=== PATIENT | female | born 1965 | race Caucasian/White ===

== ENCOUNTER 2016-11-25 07:30 | Inpatient (IN) | payer OTHER ==
--- NOTE | 2016-11-17 21:08 | HP ---
HISTORY AND PHYSICAL: DATE OF ADMISSION/SURGERY: 11/25/16 PROCEDURE: Left total knee arthroplasty. CHIEF COMPLAINT: Left knee pain. HISTORY OF PRESENT ILLNESS: Ms. Lebron is a 51-year-old female with complaints of left knee pain secondary to advanced osteoarthritis. She has failed conservative management and has elected to proceed with a left total knee arthroplasty which is scheduled for 11/25/[address] Foster. PAST MEDICAL HISTORY: 1. COPD. 2. High cholesterol. 3. Type 2 diabetes. 4. Seizure disorder. 5. Anxiety. 6. TIA. 7. Neuropathy. 8. Sleep apnea. PAST SURGICAL HISTORY: 1. Tubal ligation. 2. Left knee arthroscopy. 3. Lumbar diskectomy and ACDF. CURRENT MEDICATIONS: 1. Diclofenac. 2. Lovastatin. 3. Metformin. 4. Gabapentin. 5. Spiriva. 6. Propranolol. 7. Albuterol. 8. Lamotrigine. 9. Bupropion. ALLERGIES: WELLBUTRIN and CORTICOSTEROIDS. FAMILY HISTORY: Diabetes, high blood pressure, and heart disease. SOCIAL HISTORY: She is a 51-year-old female. She is a . She lives with her daughter. She smokes a pack a day for the last 40 years. She denies use of drugs. Uses occasional alcohol. REVIEW OF SYSTEMS: A complete 14-point review of systems was reviewed with the patient and was positive for bilateral lower extremity edema, seizure disorder. Her last seizure was about a month ago. She denies history of a DVT, PE, hepatitis C, HIV, or MRSA. PHYSICAL EXAMINATION GENERAL: She is well developed, well nourished in no acute distress. VITAL SIGNS: She stands 5 feet 3 inches tall, weighs 199 pounds. Her blood pressure is 119/82. Heart rate 60. HEENT: Normocephalic, atraumatic. NECK: Supple. No palpable lymph nodes. Trachea is midline. PULMONARY: She has mild expiratory wheezes in the right upper and lower lung bases. CARDIO: Regular rate and rhythm. Strong S1, S2. No murmurs, gallops, or rubs. No peripheral edema. ABDOMEN: Soft, nontender, nondistended. NEUROLOGICAL: She is alert and oriented x3. Cranial nerves II through XII are intact. MUSCULOSKELETAL: Left lower extremity: The skin is intact. She has a moderate joint effusion. Tenderness over the medial and lateral joint line. Full range of motion of the left knee, 2+ dorsalis pedis pulses, intact sensation, and her lower extremity muscle group strengths are intact at 5/5. ASSESSMENT AND PLAN: Ms. Lebron is a 51-year-old female with complaints of left knee pain secondary to advanced osteoarthritis. She has failed conservative management and has elected to proceed with a left total knee arthroplasty, which is scheduled for 11/25/[address] Foster discussed the risks and benefits of the surgery at today's visit and all of her questions were answered. Coumadin, Colace, and Percocet were sent to her pharmacy at today's visit for postoperative pain control and DVT prophylaxis. She will see Dr. Foster back 10 to 14 days after the surgery. KANA HOOK [id number]/[facility] #: [id number] MTDMarcy
[~2016-11-25 07:30] MED LIST: Buffered Lidocaine 1% SYRIN* 3 ML/SYR SYRINGE INTRADERM ONE; DiMENhydriNATE IV* 50 MG/ML VIAL IV PUSH PRN; Famotidine IV* 10 MG/ML 2 ML (20 mg) IV ONE; HYDROmorphone* 1 MG/ML 1 ML SYR ONE; Midazolam* 1 MG/ML 5 ML VIAL (5 MG) ONE; Morphine PF AMP (0.5MG/ML)* 5 MG/10 ML AMP ONE; Ondansetron INJ* 2 MG/ML VIAL IV PRN; PROCHLORPERAZINE INJ 5 MG/ML 2 ML VIAL IV PRN; fentaNYL* 50 MCG/ML 2 ML VIAL (100 MCG VIAL) IV PRN; fentaNYL* 50 MCG/ML 2 ML VIAL (100 MCG VIAL) ONE
[2016-11-25] MEDS ORDERED: ceFAZolin 2 GM PREMIX(*) 2 GM/50 ML BAG IVPB ONE (07:53)
[2016-11-25] MEDS ORDERED: Famotidine IV* 10 MG/ML 2 ML (20 mg) ONE (07:53)
[2016-11-25] MEDS ORDERED: fentaNYL* 50 MCG/ML 2 ML VIAL (100 MCG VIAL) ONE (09:23)
[2016-11-25] MEDS ORDERED: Propofol* 10 MG/ML 20 ML BTL IV PUSH ONE (09:23)
[2016-11-25] MEDS ORDERED: Bupivacaine 0.5% SDV PF* 30 ML VIAL ONE (09:23)
[2016-11-25] MEDS ORDERED: Dexmedetomidine* 200 MCG/2 ML 2 ML VIAL ONE (09:23)
[2016-11-25] MEDS ORDERED: HYDROmorphone* 1 MG/ML 1 ML SYR ONE (11:41)
[2016-11-25] MEDS ORDERED: diPHENhydraMINE IV* 50 MG/ML 1 ml VIAL (BENADRYL) IV PRN ×2 (12:45→13:16)
[2016-11-25] MEDS ORDERED: oxyCODONE/Acetamin 5/325 MG* TAB PO PRN (12:45)
[2016-11-25] MEDS ORDERED: LACTULOSE* 30 ML UDC PO PRN (12:45)
[2016-11-25] MEDS ORDERED: Magnesium Hydroxide LIQ* 30 ML UDC PO PRN (12:45)
[2016-11-25] MEDS ORDERED: Acetaminophen TAB* 325 MG PO PRN (12:45)
[2016-11-25] MEDS ORDERED: Ondansetron INJ* 2 MG/ML VIAL IV PRN ×2 (12:45→13:16)
[2016-11-25] MEDS ORDERED: Ondansetron TAB* 4 MG PO PRN (12:45)
[2016-11-25] MEDS ORDERED: Bisacodyl SUPP* 10 MG SUPP PR PRN (12:45)
[2016-11-25] MEDS ORDERED: Polyethylene Glycol 3350* 17 GM PACKET PO PRN (12:45)
[2016-11-25] MEDS ORDERED: Nalbuphine* 20 MG/ML 1 ML VIAL IV PRN (13:16)
[2016-11-25] MEDS ORDERED: Naloxone* 0.4 MG/ML 1 ML VIAL IV PRN (13:16)
[2016-11-25] MEDS ORDERED: DiMENhydriNATE IV* 50 MG/ML VIAL IV PUSH PRN (13:16)
[2016-11-25] MEDS ORDERED: Gabapentin TAB(NF) 600 MG PO SCH (14:00)
[2016-11-25] MEDS ORDERED: PROCHLORPERAZINE INJ 5 MG/ML 2 ML VIAL IV PRN (15:30)
[2016-11-25] MEDS ORDERED: Dextrose 50% Syringe 50 ML* 25 GM/50 ML SYRINGE IV PUSH PRN (15:54)
[2016-11-25] MEDS ORDERED: Mouth Piece, Nicotine* 1 EACH CARTRIDGE ONE (16:09)
[2016-11-25] MEDS: Nicotine Inhaler* 10 MG AMP INH PRN ×2 (16:12→20:06)
--- NOTE | 2016-11-25 16:22 | RAD ---
INDICATION: Status post total left knee replacement surgery. TECHNIQUE: 2 views of the left knee were obtained. FINDINGS: The patient is status post total left knee replacement surgery. The bones and prostheses are in normal alignment. There is a surgical drain which projects anterior to the distal femur. IMPRESSION: STATUS POST TOTAL LEFT KNEE REPLACEMENT SURGERY.
[2016-11-25] MEDS: Insulin LISPRO* 1 UNITS UNIT SUBCUT SCH (16:28)
[2016-11-25] MEDS ORDERED: Warfarin TAB(*) 6 MG PO ONE (17:00)
[2016-11-25] MEDS: oxyCODONE/Acetamin 5/325 MG* TAB PO PRN ×2 (17:45→20:57)
[2016-11-25] MEDS: ceFAZolin 1 GM in Dextrose (*) 1 GM/50 ML BAG IVPB SCH (18:08)
[2016-11-25] MEDS ORDERED: Cyclobenzaprine TAB* 10 MG PO PRN (18:30)
[2016-11-25] MEDS: Morphine INJ* 2 MG/ML 1 ML SYRINGE IV PRN ×3 (18:42→23:02)
[2016-11-25] MEDS: busPIRone TAB* 10 MG PO SCH (20:05)
[2016-11-25] MEDS: Propranolol TAB* 10 MG PO SCH (20:05)
[2016-11-25] MEDS: Docusate CAP* 100 MG PO SCH (20:05)
[2016-11-25] MEDS ORDERED: metFORMIN* 1,000 MG TAB PO SCH (21:00)
[2016-11-25] MEDS: Gabapentin CAP(*) 300 MG PO SCH (22:24)
[2016-11-25] MEDS: traZODone TAB* 50 MG TAB PO SCH (22:24)
--- NOTE | 2016-11-25 22:48 | CONS ---
HOSPITAL MEDICINE CONSULTATION REPORT: DATE OF CONSULT: 11/25/16 PRIMARY CARE PROVIDER: KANA Gonzalez ATTENDING PHYSICIAN: Dr. Kelle Foster. CONSULTING PHYSICIAN: Dr. Marquis Carr (dictation provided by Ophelia Mendoza NP). REASON FOR CONSULTATION: Medical co-management in a patient with type 2 diabetes for left total knee replacement. HISTORY OF PRESENT ILLNESS: Ms. Lebron is a 51-year-old female with past medical history of COPD, diabetes, seizure disorder, anxiety, who presented to the hospital today for an elective left total knee arthroplasty. Please see the dictated H and P from Dr. Foster for complete details. In brief, the patient had ongoing left knee pain and failed conservative treatment measures and opted for surgical intervention. Ms. Lebron states that she was feeling well prior to coming in to surgery with no acute health complaints. She states she has a history of COPD, but does not use albuterol frequently. Has never had hospitalization for an exacerbation. She has type 2 diabetes and takes metformin. She does not check her blood sugar regularly. She has seizure disorder for which she takes Lamictal and states her last seizure was in May. She also has a history of anxiety for which she takes propranolol, and finally she has a history of sleep apnea. Does not use CPAP. MEDICATIONS: 1. Gabapentin 600 mg p.o. t.i.d. 2. Lamotrigine 75 mg p.o. q.a.m. 3. Lovastatin 10 mg p.o. daily. 4. Propranolol 10 mg p.o. b.i.d. 5. BuSpar 10 mg p.o. b.i.d. 6. Metformin 1000 mg p.o. b.i.d. 7. Trazodone 50 mg p.o. b.i.d. ALLERGIES: BUPROPION and CORTICOSTEROIDS. FAMILY HISTORY: The patient reports her mother is alive and her father from a heart attack. SOCIAL HISTORY: The patient is a continued pack-a-day smoker. She denies any alcohol or drug use. She lives with her daughter. REVIEW OF SYSTEMS: A 14-point review of systems was completed with Ms. Lebron and all those not mentioned above are negative. PHYSICAL EXAM: Vital Signs: Temperature 97.5, heart rate 71, respiratory rate 16, O2 saturation 99% on room air, blood pressure 103/73. General: Ms. Lebron is lying in the bed. She is in no acute distress. She is calm and cooperative to my examination. Neuro: She is alert and oriented x3. She moves all extremities equally. There is no facial asymmetry or focal weakness. Extraocular movements are intact. Heart: S1, S2. No murmur, rub, or gallop; regular. Lungs are clear to auscultation bilaterally with no accessory muscle use and good aeration. The abdomen is soft, nontender with bowel sounds positive x4. Extremities: No cyanosis or edema. The left knee is in a Cryo unit. Skin is intact. The incision site was not assessed as this is postop day 0. DIAGNOSTIC STUDIES/LAB DATA: Preoperatively on 11/17/16, WBC 7.4, hemoglobin 13.1, hematocrit 39, platelet count 240. Sodium 136, potassium 3.8, chloride 105, serum bicarbonate 26, BUN 9, creatinine 0.59, glucose 146. Last hemoglobin A1c available on the computer is from 03/02/12 and was 6.1 at that time. ASSESSMENT: Ms. Lebron is a 51-year-old female with a past medical history of diabetes, [id number], as well as high cholesterol, seizure disorder, and anxiety, who presented to the hospital today for a left total knee arthroscopy. Plans are as follows: 1. Postop day 0, status post left knee arthroscopy: Management will be per orthopedic services. The patient will have pain medications p.r.n. with a bowel regimen. She will have physical and occupational therapy. We will monitor her H and H closely. 2. Type 2 diabetes: Plan to hold metformin and provide patient with lispro sliding scale insulin as needed. She will have a consistent carbohydrate diet. 3. Anxiety: Plan to continue the patient's propranolol and bupropion. 4. History of seizure disorder: Plan to continue lamotrigine. 5. History of chronic obstructive pulmonary disease: Plan to continue albuterol p.r.n. and the patient will have good pulmonary toilet and use of incentive spirometer. Also continue her Spiriva. 6. Sleep apnea: The patient will be monitored with pulse oximetry overnight. 7. DVT prophylaxis: Per Ortho. 8. Disposition: Per Ortho. TIME SPENT: Approximately 60 minutes were spent on the consultation of this patient, more than half time spent with the patient at the bedside reviewing the events leading up to this hospitalization, performing the physical examination, and reviewing my plan of care. OPHELIA MENDOZA NP CC: KANA Gonzalez* [id number]/[facility] #: [id number] MTDD
[2016-11-26] MEDS: oxyCODONE/Acetamin 5/325 MG* TAB PO PRN ×4 (00:36→20:07)
[2016-11-26] MEDS: Morphine INJ* 2 MG/ML 1 ML SYRINGE IV PRN ×4 (01:01→20:13)
[2016-11-26] MEDS: ceFAZolin 1 GM in Dextrose (*) 1 GM/50 ML BAG IVPB SCH ×2 (03:18→10:36)
[2016-11-26] MEDS: oxyCODONE TAB* 5 MG TAB PO PRN ×4 (04:23→23:37)
[2016-11-26] MEDS: Nicotine Inhaler* 10 MG AMP INH PRN ×3 (04:57→21:09)
--- NOTE | 2016-11-26 05:29 | OP ---
OPERATIVE REPORT: DATE OF OPERATION: 11/25/16 DATE OF : 61 SURGEON: Kelle Foster MD CROWN BLOCKER: KANA Ahuja ANESTHESIOLOGIST: Dr. Black. ANESTHESIA: Spinal with adductor nerve block. PRE-OP DIAGNOSIS: Severe end-stage degenerative osteoarthritis of the left knee joint. POST-OP DIAGNOSIS: Severe end-stage degenerative osteoarthritis of the left knee joint. OPERATIVE PROCEDURE: Left total knee arthroplasty. TOURNIQUET TIME: 46 minutes. ESTIMATED BLOOD LOSS: 300 cc. COMPLICATIONS: None. SPECIMEN: Bone and cartilage from the left knee joint sent to pathology. HARDWARE USED: This is cemented [employer] total knee hardware with two packages of Simplex b one cement. For the femur, a size 4 left posterior stabilized narrow Oxinium legion femoral compone nt. For the tibia, a size 3 left tibial base plate. For the insert, a 9 mm posterior stabilized ar ticular insert and for the patella, a 32-mm, 3-peg all-poly patella. BRIEF HISTORY/INDICATIONS: Ms. Lebron is a 51-year-old female with rheumatoid arthritis and chronic l eft knee pain. She failed conservative treatment with antiinflammatories, pain medications, intra-a rticular injections, physical therapy, and arthroscopy. Radiographs showed [id number] varus degen erative osteoarthritis, likely secondary to rheumatoid arthritis. The patient elected to undergo le ft total knee arthroplasty due to increased pain and decreased quality of life. Informed consent wa s obtained from the patient. She understood the risks of surgery included, but were not limited to, bleeding, infection, damage to nearby structures, continued pain, need for further surgery, intraop erative fracture, nerve palsy, hardware failure, loosening, stroke, heart attack, blood clot, and de ath. She wished to proceed. INTRAOPERATIVE FINDINGS: Intraoperatively, the patient was noted to have 10-degree flexion contract ure preoperatively. We did obtain full extension of the knee intraoperatively. She was noted to nolasco ve severe loss of cartilage in a tricompartmental fashion, but affecting the medial and patellofemor al compartments the most. DESCRIPTION OF PROCEDURE: Ms. Lebron was identified in the preanesthesia unit. Her left lower extrem ity was marked as the correct operative side. Informed consent was signed and placed in the chart. The patient was taken to the operating room and placed under spinal anesthesia with an adductor ner ve block. Weaver catheter was placed. Tourniquet was placed on the left thigh. The left lower extr emity was prepped and draped in the usual sterile fashion. Preop time-out was made to correctly kelli ntify the patient's side and site. Appropriate perioperative antibiotics were given within 1 hour o f incision. Tourniquet was inflated and total tourniquet time for this procedure was 46 minutes. A 12-cm midlin e incision was made with a 10 blade and carried down to the extensor mechanism. A new 10 blade was used to make a standard medial parapatellar arthrotomy. The patella was subluxed laterally. Electr ocautery was used to subperiosteally elevate soft tissue off the superomedial tibia to the midsagitt al plane. The knee was flexed up. The anterior horn of the lateral meniscus and ACL was sharply re leased. A drill was used to enter the distal femur. Intramedullary distal femoral cutting guide wa s placed and pinned into proper position. Oscillating saw was used to make a distal femoral bone cut . The external rotation guide was placed on the distal femur. Distal femur was sized to a size 4. A size 4 multi-cutting jig was pinned on the distal femur. Oscillating saw was used to make the ap propriate 4 chamfer cuts. PCL was completely released and the tibia was subluxed anteriorly. Extra medullary tibial cutting guide was pinned on the proximal tibia. Oscillating saw was used to make the appropriate proximal tibial cut and the bone was carefully removed. The knee was brought out to full extension. The spacer block fit well with full extension. Medial and lateral ligaments were well balanced. Flexion and extension gaps were well balanced. The knee was flexed up and lamina invas tech was placed both medially and laterally. Any remaining men iscus was carefully removed with electrocautery. Curved osteotome was used to remove any osteophyte s along the posterior femoral condyles. Tibial tray and drop denise once again confirmed satisfactory tibial cut perpendicular to the mechanical axis of the tibia. A size 4 narrow left femoral trial was impacted on to the distal femur. This trial had good fit. T he box for the posterior stabilized implant was prepared using a reamer and box cut osteotome. Tria l 3 tibia 9 mm insert trial were placed. The knee was taken through a range of motion and had full extension to 130 degrees of flexion. Good patellofemoral tracking. The patella was everted and 9 m m of patellar bone and cartilage was carefully removed. Patella was sized to a size 32. The three p eg holes were drilled through the size 32 guide. A 32 trial patella was placed and the knee was eduardo en through a range of motion. There was good patellofemoral tracking. All trials were carefully removed. The tibia was subluxed anteriorly and sized to a size 3. Proxim al tibia was prepared using a size 3 keel punch. All bony surfaces were copiously irrigated with st erile saline and dried. Final implants were cemented into place starting with the tibia followed by the femur and last the patella. A 9 mm insert trial was placed while the knee was brought out to f ull extension. Tourniquet was turned down at 46 minutes. The knee was copiously irrigated with sterile saline. Once the cement was fully cured, the insert t rial was removed. Any excess cement was carefully removed from around the implant. Electrocautery was used to obtain meticulous hemostasis. Final insert chosen was a 9-mm posterior stabilized articu lar insert, size 3-4. This was locked into position on the tibial tray without difficulty. Stabilit y of the insert was checked and rechecked and noted to be stable. The knee was copiously irrigated with sterile saline. The extensor mechanism was closed over a medi um Hemovac drain using interrupted #1 Vicryls. The rest of the incision was closed using 0 and 2-0 Vicryls. The skin was closed using running 3-0 nylon suture. Sterile Xeroform, 4x4's, and Webril w ere used to cover the incision. Luis wrap and cold pack were placed over this. Intended weightbearing will be weightbearing as tolerated. Intended DVT prophylaxis will be Coumadi n with a Lovenox bridge. [id number]/[facility] #: [id number]
[2016-11-26 06:44] LABS: Hematocrit 35 % (35-47); Hemoglobin 11.8 g/dl (12.0-16.0)
[2016-11-26 07:13] LABS: BUN/Creatinine Ratio 12.7 (8-20); Calcium 9.1 mg/dL (8.6-10.3); EGFR African American 127.1 (>60); EGFR Non-African American 98.8 (>60); Potassium 3.8 mmol/L (3.5-5.0)
--- NOTE | 2016-11-26 07:25 | PN ---
Progress Note - Progress Note SOAP: Subjective: Pt. reports pain was severe overnight. Objective: LLE - drain removed, tip intact with 400 cc ss drainage. distally full sens lt , +df/pf, 2+ dp pulse. Vital Signs: Temp Pulse Resp BP Pulse Ox 99.0 F 79 16 107/49 99 11/26/16 03:22 11/26/16 03:22 11/26/16 06:04 11/26/16 03:22 11/26/16 03:22 Laboratory Results - last 24 hr 11/25/16 11/25/16 11/26/16 08:00 16:26 06:27 Hgb 11.8 L Hct 35 INR (Anticoag Therapy) Sodium Potassium Chloride Carbon Dioxide Anion Gap BUN Creatinine Est GFR ( Amer) Est GFR (Non-Af Amer) BUN/Creatinine Ratio Glucose POC Glucose (mg/dL) 132 H 95 Calcium 11/26/16 11/26/16 06:27 06:27 Hgb Hct INR (Anticoag Therapy) 1.27 H Sodium 131 L Potassium 3.8 Chloride 99 L Carbon Dioxide 26 Anion Gap 6 BUN 8 Creatinine 0.63 Est GFR ( Amer) 127.1 Est GFR (Non-Af Amer) 98.8 BUN/Creatinine Ratio 12.7 Glucose 158 H POC Glucose (mg/dL) Calcium 9.1 Assessment: 51 yo F pod 1 s/p LTKA Plan: wbat pt/ot nicotine patch q daily 6 mg coumadin tonight with lovenox bridge plan d/c to home tomorrow
[2016-11-26] MEDS: CMC:Lovastatin (NF) 10 MG TAB PO SCH (08:07)
[2016-11-26] MEDS: Propranolol TAB* 10 MG PO SCH ×2 (08:07→20:09)
[2016-11-26] MEDS: traZODone TAB* 50 MG TAB PO SCH ×2 (08:07→20:09)
[2016-11-26] MEDS: Gabapentin CAP(*) 300 MG PO SCH ×3 (08:07→20:08)
[2016-11-26] MEDS: Docusate CAP* 100 MG PO SCH ×2 (08:07→20:09)
[2016-11-26] MEDS: busPIRone TAB* 10 MG PO SCH ×2 (08:08→20:09)
[2016-11-26] MEDS: lamoTRIgine TAB(*) 25 MG PO SCH (08:09)
[2016-11-26] MEDS: Nicotine PATCH 21 MG/24 HR* PATCH TRANSDERM SCH (08:09)
[2016-11-26] MEDS: Insulin LISPRO* 1 UNITS UNIT SUBCUT SCH ×3 (08:10→17:18)
[2016-11-26] MEDS ORDERED: Enoxaparin(*) 30 MG/0.3 ML SYR SUBCUT SCH (12:00)
[2016-11-26] MEDS ORDERED: Warfarin TAB(*) 6 MG PO SCH (17:00)
[2016-11-26] MEDS ORDERED: Nicotine Patch Removal NOTE PATCH OFF SCH (21:00)
[2016-11-27] MEDS: oxyCODONE/Acetamin 5/325 MG* TAB PO PRN ×2 (03:04→06:41)
[2016-11-27 07:47] VITALS: BP 108/61
[2016-11-27 07:52] LABS: Hematocrit 33 % (35-47); Hemoglobin 10.9 g/dl (12.0-16.0)
[2016-11-27] MEDS: Insulin LISPRO* 1 UNITS UNIT SUBCUT SCH (07:59)
[2016-11-27] MEDS: Nicotine Inhaler* 10 MG AMP INH PRN (08:00)
[2016-11-27] MEDS: Nicotine PATCH 21 MG/24 HR* PATCH TRANSDERM SCH (08:00)
[2016-11-27] MEDS: traZODone TAB* 50 MG TAB PO SCH (08:03)
[2016-11-27] MEDS: lamoTRIgine TAB(*) 25 MG PO SCH (08:04)
[2016-11-27] MEDS: Gabapentin CAP(*) 300 MG PO SCH (08:04)
[2016-11-27] MEDS: Docusate CAP* 100 MG PO SCH (08:04)
[2016-11-27] MEDS: busPIRone TAB* 10 MG PO SCH (08:04)
[2016-11-27] MEDS: CMC:Lovastatin (NF) 10 MG TAB PO SCH (08:04)
[2016-11-27] MEDS: Propranolol TAB* 10 MG PO SCH (08:04)
--- NOTE | 2016-11-27 09:42 | PN ---
Progress Note - Progress Note SOAP: Subjective: Pt is doing well. Pain is well controlled. Doing well with PT. Denies CP, SOB or calf pain Objective: PE: 51 y/o WDWN F NAD, lying comfortably in bed LLE: incision healing well w/o sign of infection, +PF/DF of ankle, calf soft nontender, NVI intact Vital Signs Temp Pulse Resp BP Pulse Ox 97.6 F 82 18 108/61 95 11/27/16 07:34 11/27/16 07:34 11/27/16 08:04 11/27/16 07:34 11/27/16 07:34 Laboratory Results - last 24 hr 11/26/16 11/26/16 11/27/16 12:40 16:41 07:09 Hgb Hct INR (Anticoag Therapy) POC Glucose (mg/dL) 161 H 209 H 240 H 11/27/16 11/27/16 07:21 07:21 Hgb 10.9 L Hct 33 L INR (Anticoag Therapy) 2.02 H POC Glucose (mg/dL) Assessment: POD 2 s/p Left TKA Plan: DC to home with VNS today Cont coumadin, percocet and colace WBAT LLE cont PT F/U 10-14 days
[2016-11-27] MEDS: oxyCODONE TAB* 5 MG TAB PO PRN (09:46)
--- NOTE | 2016-11-28 06:23 | DS ---
DISCHARGE SUMMARY: DATE OF ADMISSION: 11/25/16 DATE OF DISCHARGE: 11/27/16 PROVIDER: Kelle Foster MD ADMITTING DIAGNOSIS: Status post left total knee arthroplasty due to severe left knee osteoarthritis. SECONDARY DIAGNOSES: 1. Chronic obstructive pulmonary disease. 2. High cholesterol. 3. Diabetes type 2. 4. Seizure disorder. 5. Anxiety. 6. Transient ischemic attack. 7. Neuropathy. 8. Sleep apnea. CONSULTATIONS: PT/OT and medicine. HISTORY OF PRESENT ILLNESS: Ms. Lebron is a 51-year-old female who presents to the clinic with ongoing left knee pain due to severe osteoarthritis. She has failed conservative measures, therefore she agreed to undergo a left total knee arthroplasty with Dr. Foster on 11/25/16. HOSPITAL COURSE: Ms. Lebron was admitted to [facility] on 11/25/16. She underwent a left total knee arthroplasty. Postoperatively, she recovered in the Short-Stay Surgical Unit. On postop day 1, Weaver was removed. She was able to urinate on her own. Her diet was advanced to regular without difficulty and pain was controlled with oral Percocet. She was restarted on her home medications. Labs and vitals remained stable. H and H was 11.8 and 35. INR was 1.27 after 6 mg of Coumadin the night before. She was able to weightbear as tolerated on the left lower extremity. She advanced appropriately with physical therapy and occupational therapy. On postop day 2, she was orthopedically and medically stable for discharge to home with VNS services. H and H was 10.9 and 33. INR was 2.02 after 6 mg of Coumadin the night before. DISCHARGE CONDITION: Stable. DISCHARGE MEDICATIONS: Medications continued at home on discharge to include: 1. Metformin 500 mg 2 tablets by mouth twice a day. 2. Lamictal 75 mg by mouth daily. 3. Gabapentin 600 mg by mouth 3 times a day. 4. BuSpar 10 mg by mouth twice a day. 5. Propranolol 10 mg by mouth twice a day. 6. Trazodone 50 mg by mouth twice a day. 7. Lovastatin 10 mg by mouth daily. New medications on discharge to include: 1. Colace 100 mg by mouth twice a day. 2. Percocet 5/325 mg 1 to 2 tabs q.4-6 hours as needed for pain. 3. Warfarin 2 mg to take daily as directed by doctor. DISCHARGE INSTRUCTIONS: Weightbearing as tolerated, left lower extremity. Activity as directed by physical therapy. The patient is to keep the dressing dry and intact. Dressing change daily by VNS. May shower postop day 4. Do not submerge in water such as bath hot tubs or pool. Suture removal at followup visit with Dr. Foster. The patient is to call the office or go to the ER if she develop shortness of breath, chest pain, calf pain or tenderness, or fever greater than 101.5 degrees Fahrenheit. She will follow up with Dr. Foster in 10 to 14 days for followup of suture removal and x-rays. She will continue Percocet, Colace, and Coumadin x1 month for DVT prophylaxis. The patient will hold Coumadin Tuesday, take 2 mg on Tuesday, and redraw on Tuesday. The patient was instructed not to take aspirin or ibuprofen along Coumadin. KANA BAILEY [id number]/[facility] #: [id number] MTDMarcy
== END 2016-11-27 11:10 | disposition home health service (06) | DRG 302 ==
LOC: AA 07:33 → SSU 15:14
PROVIDERS: ADMIT Orthopaedic Surgery Adult Reconstructive Orthopaedic Surgery; ATTEND Orthopaedic Surgery Adult Reconstructive Orthopaedic Surgery
PROC: 0SRD0J9 Replacement of Left Knee Joint with Synthetic Substitute, Cemented, Open Approach (ICD-10-PCS; principal; 2016-11-25 10:00)
DX: M17.12 Unilateral primary osteoarthritis, left knee (principal); E11.40 Type 2 diabetes mellitus with diabetic neuropathy, unspecified; J44.9 Chronic obstructive pulmonary disease, unspecified; E78.00 Pure hypercholesterolemia, unspecified; G40.909 Epilepsy, unspecified, not intractable, without status epilepticus; F41.9 Anxiety disorder, unspecified; F17.210 Nicotine dependence, cigarettes, uncomplicated; F32.9 Major depressive disorder, single episode, unspecified; G47.33 Obstructive sleep apnea (adult) (pediatric); J45.909 Unspecified asthma, uncomplicated; Z79.84 Long term (current) use of oral hypoglycemic drugs; Z86.73 Personal history of transient ischemic attack (TIA), and cerebral infarction without residual deficits; Z98.51 Tubal ligation status; Z98.1 Arthrodesis status; Z88.8 Allergy status to other drugs, medicaments and biological substances; Z82.49 Family history of ischemic heart disease and other diseases of the circulatory system; Z83.3 Family history of diabetes mellitus; Z83.49 Family history of other endocrine, nutritional and metabolic diseases; Z72.89 Other problems related to lifestyle; Z79.01 Long term (current) use of anticoagulants
CPT/HCPCS: 36415; 71020; 80048; 85014; 85018; 85610; 88305; 88311; 93005; A9270-GY; C1776; J0690; J1170; J1200; J1650; J2250; J2270; J2704; J3010

== ENCOUNTER 2017-02-05 21:02 | Emergency (ER) | payer MEDICAID ==
[2017-02-05 21:13] VITALS: BP 141/70
[2017-02-05] MEDS ORDERED: Tetracaine 0.5% OPTH.SOL 4 ML* 1 DROP BTL BOTH EYES ONE (21:26)
[2017-02-05] MEDS ORDERED: Fluorescein Sodium TOPICAL* 1 MG TEST OPHTHALMIC ONE (21:26)
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
== END 2017-02-05 21:50 | disposition home or self-care (01) ==
LOC: UCCORT 21:02
DX: T20.10XA Burn of first degree of head, face, and neck, unspecified site, initial encounter (principal); T31.0 Burns involving less than 10% of body surface; X08.8XXA Exposure to other specified smoke, fire and flames, initial encounter; Y93.89 Activity, other specified; Y92.9 Unspecified place or not applicable; E11.9 Type 2 diabetes mellitus without complications; J45.909 Unspecified asthma, uncomplicated; Z86.73 Personal history of transient ischemic attack (TIA), and cerebral infarction without residual deficits; F41.8 Other specified anxiety disorders; Z96.652 Presence of left artificial knee joint; Z88.8 Allergy status to other drugs, medicaments and biological substances; F17.210 Nicotine dependence, cigarettes, uncomplicated
CPT/HCPCS: 99211; A9270-GY; G0463

== ENCOUNTER 2017-03-31 17:42 | Emergency (ER) | payer OTHER ==
[2017-03-31 19:02] VITALS: BP 107/68
[2017-03-31] MEDS ORDERED: Albuterol 2.5 MG/3 ML NEB.SOL* (0.083%) INH ONE (19:25)
[2017-03-31] MEDS ORDERED: predniSONE TAB* 20 MG PO ONE (19:25)
[2017-03-31] MEDS ORDERED: Ipratropium 0.5MG/2.5ML NEB* 0.5 MG/2.5 ML NEB.SOLN INH ONE (19:25)
--- NOTE | 2017-03-31 19:36 | UC ---
Respiratory Complaint HPI - HPI Summary HPI Summary: 51 yo female with cough/wheezing/chest tightness/sore throat and use of rescue inhaler no f/c no cp some dyspnea - History of Current Complaint Chief Complaint: UCRespiratory Stated Complaint: SORE THROAT,CHEST CONGESTION Time Seen by Provider: 03/31/17 19:19 Hx Obtained From: Patient Onset/Duration: Gradual Onset, Lasting Days Timing: Constant Severity Initially: Mild Severity Currently: Moderate Pain Intensity: 2 Pain Scale Used: 0-10 Numeric Character: Cough: Nonproductive Aggravating Factors: Exertion, Deep Breaths Alleviating Factors: Bronchodilator Associated Signs And Symptoms: Positive: Wheezing, Hoarseness - Allergies/Home Medications Allergies/Adverse Reactions: Allergies Allergy/AdvReac Type Severity Reaction Status Date / Time Bupropion [From Wellbutrin] Allergy Hives Verified 03/31/17 18:52 Corticosteroids Allergy LIPS SWELL Verified 03/31/17 18:52 AND STUTTERING PMH/Surg Hx/FS Hx/Imm Hx Previously Healthy: Yes Endocrine History: Dyslipidemia Cardiovascular History: Hypertension Respiratory History: Asthma, Bronchitis, Pneumonia - Surgical History Surgical History: Yes Surgery Procedure, Year, and Place: TUBAL LIGATION. DISCETOMY-C 4. LT KNEE SCOPE. Left total Knee Replacement 11/20/16 - Family History Known Family History: Positive: Cardiac Disease, Hypertension, Diabetes - Social History Alcohol Use: Rare Alcohol Amount: 2 DRINKS/YR Substance Use Type: None Smoking Status (MU): Heavy Every Day Tobacco Smoker Type: Cigarettes Amount Used/How Often: 1/2 PPD Length of Time of Smoking/Using Tobacco: 30 YRS Have You Smoked in the Last Year: Yes Household Exposure Type: Cigarettes - Immunization History Most Recent Influenza Vaccination: 07/2016 Most Recent Tetanus Shot: UTD Most Recent Pneumonia Vaccination: NONE Review of Systems Constitutional: Negative Skin: Negative Eyes: Negative ENT: Sore Throat, Ear Ache, Nasal Discharge Respiratory: Shortness Of Breath, Cough Cardiovascular: Negative Gastrointestinal: Negative Genitourinary: Negative Motor: Negative Neurovascular: Negative Musculoskeletal: Negative Neurological: Negative Psychological: Negative All Other Systems Reviewed And Are Negative: Yes Physical Exam Triage Information Reviewed: Yes Appearance: Well-Appearing, No Pain Distress, Well-Nourished Vital Signs: Initial Vital Signs Temp 97.9 F 03/31/17 18:56 Pulse 92 03/31/17 18:56 Resp 18 03/31/17 18:56 BP 107/68 03/31/17 18:56 Pulse Ox 98 03/31/17 18:56 Eye Exam: Normal Eyes: Positive: Conjunctiva Clear ENT: Positive: Hearing grossly normal, Pharyngeal erythema, Nasal congestion, TMs normal, Other: - hoarse. Negative: Tonsillar swelling, Tonsillar exudate, Trismus Dental: Negative: Dental Fracture @, Abscess @ Neck: Positive: Supple, Nontender, No Lymphadenopathy Respiratory: Positive: No respiratory distress, No accessory muscle use, Wheezing Cardiovascular: Positive: RRR. Negative: Tachycardia, Bradycardia Musculoskeletal: Positive: ROM Intact, No Edema Neurological: Positive: Alert Psychological Exam: Normal Skin Exam: Normal UC Diagnostic Evaluation - Laboratory O2 Sat by Pulse Oximetry: 98 - normal/not hypoxic Re-Evaluation - Re-Evaluation First Eval Change: Improved - decreased wheezes/better air movement Respiratory Course/Dx - Differential Dx/Diagnosis Provider Diagnoses: acute bronchitis with bronchospasm Discharge - Discharge Plan Condition: Stable Disposition: HOME Prescriptions: Amoxicillin PO (*) [Amoxicillin 875 MG (*)] 875 mg PO BID #14 tab Prednisone [Deltasone] 40 mg PO DAILY #10 tab Patient Education Materials: Acute Bronchitis (ED), Bronchospasm (ED) Referrals: Anna Duckworth PA [Primary Care Provider] - 5 Days Additional Instructions: recheck for new or worsening symptoms\ you need to stop smoking
== END 2017-03-31 20:25 | disposition home or self-care (01) ==
LOC: UCCORT 17:42
DX: J20.9 Acute bronchitis, unspecified (principal); F17.210 Nicotine dependence, cigarettes, uncomplicated
CPT/HCPCS: 99212; G0463; J7512; J7644